=== PATIENT | female | born 1930 | race Caucasian/White ===

== ENCOUNTER 2016-07-27 05:53 | Day surgery (SDC) | payer MEDICARE ==
[2016-07-24 11:28] LABS: HEMOGLOBIN 12.6 g/dL (11.7-16.4)
[2016-07-24 11:40] LABS: ASPARTATE AMINO TRANSFERASE 18 U/L (15-37); BLOOD UREA NITROGEN 35 mg/dL (7-18)
[~2016-07-27] VITALS: Ht 160 cm; Wt 63.0 kg
[~2016-07-27 05:53] MED LIST: AMLO5TAB4 PO; ASPI-496 PO; CARV12.52 PO; INSU100C SQ-INSULIN; INSU100V8 SQ; METH2.5T PO; ROSU10TA PO; TRAM50TA2 PO; VALS320T2 PO
[2016-07-27] MEDS ORDERED: LACTATED RINGERS 1,000 ML IV SCH (06:42)
[2016-07-27 06:43] VITALS: BP 181/84
[2016-07-27] MEDS ORDERED: BUPIVACAINE LIPOSOME/PF INFIL ONE (06:57)
[2016-07-27] MEDS ORDERED: MIDAZOLAM 1 MG/ML, 2ML ONE (07:12)
[2016-07-27] MEDS ORDERED: FENTANYL PF 250 MCG/5ML ONE (07:12)
[2016-07-27] MEDS ORDERED: METOCLOPRAMIDE 5 MG/ML, 2ML IV PRN (08:00)
[2016-07-27] MEDS ORDERED: FENTANYL PF 100 MCG/2ML IV PRN (08:00)
[2016-07-27] MEDS ORDERED: ACETAMINOPHEN 325 MG TABLET PO PRN (08:00)
[2016-07-27] MEDS ORDERED: HYDROmorphone 1 MG/ML, 1ML IV PRN (08:00)
[2016-07-27] MEDS ORDERED: ONDANSETRON 2MG/ML, 2ML IVPush PRN (08:00)
[2016-07-27] MEDS ORDERED: hydrALAzine 20 MG/ML, 1ML IV PRN (08:00)
[2016-07-27] MEDS ORDERED: LABETALOL 5MG/ML, 20ML IV PRN (08:00)
[2016-07-27] MEDS ORDERED: OXYcodone 5 MG/5 ML ORAL.SOL UDC PO PRN (08:00)
[2016-07-27] MEDS ORDERED: GLYCOPYRROLATE 0.2MG/1ML ONE (11:11)
[2016-07-27] MEDS ORDERED: SUCCINYLCHOLINE 20 MG/ML, 10ML ONE (11:11)
[2016-07-27] MEDS ORDERED: ONDANSETRON 2MG/ML, 2ML ONE (11:11)
[2016-07-27] MEDS ORDERED: PROPOFOL 10 MG/ML, 20ML ONE (11:11)
[2016-07-27] MEDS ORDERED: NEOSTIGMINE 1 MG/ML, 10ML ONE (11:11)
[2016-07-27] MEDS ORDERED: ROCURONIUM 10 MG/ML ONE (11:11)
== END 2016-07-27 11:00 ==
LOC: OUT 05:53
PROVIDERS: ATTEND Surgery
DX: D21.5 Benign neoplasm of connective and other soft tissue of pelvis (principal); I10 Essential (primary) hypertension; I25.10 Atherosclerotic heart disease of native coronary artery without angina pectoris; E11.9 Type 2 diabetes mellitus without complications; Z86.73 Personal history of transient ischemic attack (TIA), and cerebral infarction without residual deficits; Z85.820 Personal history of malignant melanoma of skin
CPT/HCPCS: 27043; 36415; 71020; 80053; 82962; 85025; 88304; 93005; C1729; C9290; J0330; J2250; J2405; J2704; J2710; J3010; J7120; J3490

== ENCOUNTER → 2018-07-24 | Outpatient (CLI) | payer MEDICARE ==
[~2018-07-24] MED LIST changes: +REGADENOSON 0.4 MG/5 ML SYRINGE ONE
== END | disposition home or self-care (01) ==
LOC: CFH 10:53
PROVIDERS: ATTEND Internal Medicine Cardiovascular Disease
DX: I08.0 Rheumatic disorders of both mitral and aortic valves (principal); R06.00 Dyspnea, unspecified; I25.10 Atherosclerotic heart disease of native coronary artery without angina pectoris; I10 Essential (primary) hypertension; E78.5 Hyperlipidemia, unspecified; Z86.73 Personal history of transient ischemic attack (TIA), and cerebral infarction without residual deficits
CPT/HCPCS: 78452; 93017; 93306; A9502; J2785